=== PATIENT | male | born 1950 | race Two or more races ===

== ENCOUNTER → 2024-03-03 | Outpatient (CLI) | payer OTHER, SELFPAY ==
[2024-03-03 09:29] LABS: Misc Send Out* See Sep Rpt
[2024-03-03 10:41] LABS: Basophils % (Auto) 1 % (0-2.5); Eosinophils # (Auto) 0.3 Thou/mm3 (0.0-0.5); Eosinophils % (Auto) 7 % (0-10); Hematocrit 40.1 % (41.0-53.0); Hemoglobin 13.4 g/dL (13.5-16.0); Immature Granulocytes % (Auto) 0 % (0-0); Immature Granulocytes Auto 0.01 Thou/mm3 (0.00-0.00); Lymphocytes # (Auto) 1.7 Thou/mm3 (1.0-4.8); Lymphocytes % (Auto) 37 % (10-50); Mean Corpuscular HGB Conc 33.4 g/dl (31.0-37.0); Mean Corpuscular Hemoglobin 29.7 pg (25.0-35.0); Mean Corpuscular Volume 89 fL (80-100); Monocytes # (Auto) 0.3 Thou/mm3 (0.0-0.8); Monocytes % (Auto) 7 % (0-12); Neutrophils # (Auto) 2.1 Thou/mm3 (1.8-7.7); Neutrophils % (Auto) 47 % (37-80); Nucleated Red Blood Cell % 0 /100 WBC (0); Platelet Count 281 Thou/mm3 (140-440); RDW Standard Deviation 39.2 fL (35.1-43.9); Red Blood Count 4.51 Miln/mm3 (4.50-5.90); White Blood Count 4.5 Thou/mm3 (3.8-10.6)
[2024-03-03 11:07] LABS: Alanine Aminotransferase 13 U/L (10-49); Albumin, Serum 4.4 gm/dL (3.4-4.8); Albumin/Globulin Ratio 1.7 (1.2-2.2); Alkaline Phosphatase 80 U/L (46-116); Anion Gap 6 (7-16); Aspartate Amino Transferase 14 U/L (0-34); BUN/Creatinine Ratio 15 Ratio (12-20); Bilirubin,Total 0.9 mg/dL (0.3-1.2); Blood Urea Nitrogen 16 mg/dL (9-23); Calcium 9.7 mg/dL (8.3-10.6); Calcium (Corrected) 9.7 mg/dL (8.5-10.1); Carbon Dioxide 29.1 mMol/L (20.0-31.0); Chloride 104 mMol/L (98-107); Creatinine (Component) 1.1 mg/dL (0.6-1.3); Globulin 2.6 gm/dL (2.3-3.5); Glucose 102 mg/dL (74-106); Osmolality,Calculated 278 (275-295); Potassium 4.2 mMol/L (3.4-5.1); Sodium 139 mMol/L (136-145); eGFR > 60 See Note
[2024-03-07 19:47] LABS: Abnormal protein band 1 0.8 g/dL (NONE DETECTED); Albumin 4.1 g/dL (3.8-4.8); Alpha-1-Globulin 0.2 g/dL (0.2-0.3); Alpha-2-Globulin 0.6 g/dL (0.5-0.9); Beta-1-Globulin 0.4 g/dL (0.4-0.6); Beta-2-globulin 0.7 g/dL (0.2-0.5); Gamma Globulin 1.1 g/dL (0.8-1.7); Immunoglobulin A 98 mg/dL (70-320); Immunoglobulin G 724 mg/dL (600-1540); Kappa Light Chain, Free 53.1 mg/L (3.3-19.4); Lambda Light Chain, Free 21.9 mg/L (5.7-26.3)
[2024-03-10 06:53] LABS: Beta 2 Microglobulin 1.95 mg/L (< OR = 2.51); Immunoglobulin M 1488 mg/dL (50-300); Kappa/Lambda, Free Ratio 2.42 (0.26-1.65)
== END | disposition home or self-care (01) ==
LOC: SCTO 08:57
PROVIDERS: PCP Family Medicine; Referring Provider Nurse Practitioner Family; Visit Provider Nurse Practitioner Family
DX: D47.2 Monoclonal gammopathy (principal)
CPT/HCPCS: 36415; 80053; 82232; 82784; 83521; 84155; 84165; 85025; 85810; 86334

== ENCOUNTER 2024-03-13 09:23 | Outpatient (RCR) | payer OTHER, SELFPAY | END 2024-03-25 23:59 | disposition home or self-care (01) | LOC: SCTC 09:23 | PROVIDERS: PCP Family Medicine; Referring Provider Family Medicine; Visit Provider Nurse Practitioner Family | DX: D47.2 Monoclonal gammopathy (principal) | CPT/HCPCS: 99212; G0463 ==

== ENCOUNTER → 2024-03-14 | Outpatient (BNVA) | payer OTHER, SELFPAY | END | disposition home or self-care (01) | PROVIDERS: PCP Nurse Practitioner Family; Referring Provider Nurse Practitioner Family; Visit Provider Nurse Practitioner Family | DX: Z01.810 Encounter for preprocedural cardiovascular examination (principal); Z00.01 Encounter for general adult medical examination with abnormal findings; Z13.820 Encounter for screening for osteoporosis; Z13.1 Encounter for screening for diabetes mellitus; F17.200 Nicotine dependence, unspecified, uncomplicated; Z13.220 Encounter for screening for lipoid disorders; Z11.3 Encounter for screening for infections with a predominantly sexual mode of transmission; N40.0 Benign prostatic hyperplasia without lower urinary tract symptoms; D47.2 Monoclonal gammopathy | CPT/HCPCS: 93005; 99215 ==

== ENCOUNTER → 2024-03-21 | Outpatient (BNVA) | payer OTHER, SELFPAY | END | disposition home or self-care (01) | PROVIDERS: PCP Nurse Practitioner Family; Referring Provider Nurse Practitioner Family; Visit Provider Nurse Practitioner Family | DX: N40.0 Benign prostatic hyperplasia without lower urinary tract symptoms (principal); D47.2 Monoclonal gammopathy; E78.5 Hyperlipidemia, unspecified; Z71.2 Person consulting for explanation of examination or test findings; R73.03 Prediabetes; N39.0 Urinary tract infection, site not specified | CPT/HCPCS: 99213 ==

== ENCOUNTER → 2024-04-03 | Outpatient (BNVA) | payer OTHER, SELFPAY | END | disposition home or self-care (01) | PROVIDERS: PCP Nurse Practitioner Family; Referring Provider Nurse Practitioner Family; Visit Provider Nurse Practitioner Family | DX: Z00.01 Encounter for general adult medical examination with abnormal findings (principal); N40.0 Benign prostatic hyperplasia without lower urinary tract symptoms | CPT/HCPCS: 99212; G0463 ==

== ENCOUNTER 2024-04-25 09:26 | Emergency (ER) | payer OTHER, SELFPAY ==
[2024-04-25 09:36] VITALS: BP 145/82; PULSE 74; RESP 18; TEMP 37.4; O2SAT 95; BMI 21.9
--- NOTE | 2024-04-25 09:41 | XR_ITS ---
Examination: PA lateral chest 2 views TECHNIQUE: Upright PA lateral chest 2 views Exam date and time: April 25, 2024 10:11 AM INDICATIONS: Coughing congestion beginning 2 weeks ago. FINDINGS: Size. Lungs are clear. The osseous structures are intact IMPRESSION: No active disease
--- NOTE | 2024-04-25 09:42 | EDNOTE_ITS ---
Upper Respiratory Inf. RME/HPI General Chief Complaint: Flu Like Symptoms Stated Complaint: Cough X 2 months Time Seen by Provider: 04/25/24 09:42 Source: patient Arrival date/time: 04/25/24 09:26 73-year-old male with a history of hyperlipidemia presents to the emergency room with a chief complaint of coughing x 2 months. Patient states he is a chronic smoker. Mode of arrival: ambulatory Limitations: no limitations Related Data Previous Rx's ?Medication ?Instructions ?Recorded rosuvastatin 20 mg tablet 20 mg PO HS 90 days #90 tabs 03/21/24 Allergies Allergy/AdvReac Type Severity Reaction Status Date / Time No Known Allergies Allergy Verified 04/03/24 11:12 Review of Systems Review of Systems Systems Reviewed: All systems reviewed, normal except as documented Constitutional Constitutional: Reports system reviewed and no additional complaints, except as documented, Denies fatigue, Denies fever(s), Denies headache(s) and Denies weakness Eyes Eyes: Reports system reviewed and no additional complaints, except as documented, Denies blurry vision and Denies change in vision ENT Ears, Nose, Mouth, and Throat: Reports system reviewed and no additional complaints, except as documented, Denies otalgia, Denies headache(s), Denies nasal congestion, Denies throat swelling and Denies vertigo Cardiovascular Cardiovascular: Reports system reviewed and no additional complaints, except as documented, Denies chest pain, Reports dyspnea and Denies dyspnea on exertion Respiratory Respiratory: Reports system reviewed and no additional complaints, except as documented, Reports chest congestion, Reports cough, Reports dyspnea, Denies dyspnea on exertion, Denies hemoptysis and Denies wheezing Gastrointestinal Gastrointestinal: Reports system reviewed and no additional complaints, except as documented, Denies abdominal pain, Denies cramping, Denies nausea and Denies vomiting Genitourinary Genitourinary: Reports system reviewed and no additional complaints, except as documented, Denies dysuria and Denies hematuria Musculoskeletal Musculoskeletal: Reports system reviewed and no additional complaints, except as documented and Denies back pain Integumentary/Breasts Skin/Breast: Reports system reviewed and no additional complaints, except as documented and Denies wounds Neurologic Neurologic: Reports system reviewed and no additional complaints, except as documented, Denies confusion, Denies headache(s), Denies lack of coordination, Denies vertigo and Denies weakness Psychiatric Psychiatric: Reports system reviewed and no additional complaints, except as documented, Denies anxiety, Denies confusion, Denies depression, Denies paranoia, Denies suicidal ideation and Denies tactile hallucinations Endocrine Endocrine: Reports system reviewed and no additional complaints, except as documented and Denies fatigue Hematologic/Lymphatic Hematologic/Lymphatic: Reports system reviewed and no additional complaints, except as documented and Denies lymphadenopathy Allergic/Immunologic Allergic/Immunologic: Reports system reviewed and no additional complaints, except as documented, Denies throat swelling, Denies urticaria and Denies wheezing Past Medical History Past Medical History NEUROLOGIC: Positive Head Trauma ( A CHILD); Negative Neurological Disorders or Seizures CARDIAC: Negative Cardiac Disorders, Congestive Heart Failure, Edema or Cellulitis RESPIRATORY: Negative Chronic Obstructive Pulmonary Disease (COPD), Tuberculosis or Sleep Apnea GASTROINTESTINAL: Negative Gastrointestinal Disorders or Hepatitis GENITOURINARY: Negative Genitourinary Disorders or Renal Disease MUSCULOSKELETAL: Positive Musculoskeletal Disorders (RIGHT SHOULDER PAIN) and Fractures (RIGHT HAND - SEVERAL YEARS AGO. HAD SURGERY) ENT: Positive Cataracts (LEFT EYE FOR THIS PROC), Deafness (HEARING AID VESTA EAR. HARD TO UNDERSTAND WORD AT TIMES) and Head Trauma ( A CHILD) ENDOCRINE: Negative Endocrine Disorders, Diabetes Mellitus Type 1 or Diabetes Mellitus Type 2 HEMATOLOGIC: Positive Blood Disorders (IgM Monoclonal Gammopathy) OTHER HISTORY: Negative Hospitalization, Autoimmune Disease, Shingles, Falls, Blood Transfusions, Blood Transfusion Reaction, Anesthesia Reactions, Organ Transplant, Chemotherapy, Radiation Therapy, Hyperbaric Therapy, MRSA, Chicken Pox, Measles, Mumps or Cancer Family History FAMILY HISTORY: Positive Family Respiratory Disorders (FATHER (ASTHMA)) and Family Surgery (BROTHER); Negative Family Psychiatric Problems, Family Cardiac Disorders, Family Gastro intestinal Problems, Family Cancer or Family Anesthesia Reaction Surgical History SURGICAL: Positive Open Reduction Internal Fixation (RIGHT HAND hardware implant and removal); Negative Cardiac Surgery, Pacemaker, Ear Surgery, Eye Surgery, Nose Surgery, Oral Surgery, Tonsillectomy, Abdominal Surgery, Neurologic Surgery, Vasectomy or Organ Transplant Social History SMOKING STATUS: Current some day smoker SECOND HAND EXPOSURE: No ED Exam General Limitations: Present no limitations General appearance: Present alert and in no apparent distress Head Head exam: Present atraumatic Eye Eye exam: Present normal appearance, PERRL and EOMI ENT ENT exam: Present normal exam, normal oropharynx and mucous membranes moist Neck Neck exam: Present normal inspection, full ROM and trachea midline Chest Chest inspection: Present normal inspection and symmetric chest wall rise Respiratory Respiratory exam: Present normal lung sounds bilaterally; Absent respiratory distress, wheezes, stridor, accessory muscle use or prolonged expiratory phase Cardiovascular Cardiovascular exam: Present regular rate, normal rhythm and normal heart sounds Abdominal Exam Abdominal exam: Present soft and normal bowel sounds Extremities Exam Extremities exam: Present normal inspection and full ROM Back Exam Back exam: Present normal inspection and full ROM Neurological Exam Neurological exam: Present alert, oriented X3 and CN II-XII intact Psychiatric Psychiatric exam: Present normal affect and normal mood Skin Skin exam: Present warm, dry, intact and normal color Course Quality Measures none Orders Category Date Time Status Bedside COVID-19 Antigen Test NOW Care 04/25/24 09:41 Active Bedside Influenza A&B Antigen Test NOW Care 04/25/24 09:41 Completed XR chest 2V Stat Exams 04/25/24 09:41 Completed Dexamethasone Inj [Decadron Inj] Med 04/25/24 09:41 Discontinued 10 mg PO X1 ONE Vital Signs Vital signs: Vital Signs Temperature 99.4 F 04/25/24 09:36 Pulse Rate 74 04/25/24 09:36 Respiratory Rate 18 04/25/24 09:36 Blood Pressure 145/82 H 04/25/24 09:36 Pulse Oximetry (%) 95 04/25/24 09:36 Oxygen Delivery Method Room Air 04/25/24 09:36 O2 saturation 95% within normal limits with Upper Respiratory Infection MDM Narrative MDM Narrative:: 73-year-old male with a history of hyperlipidemia presents to the emergency room with a chief complaint of coughing x 2 months. Patient states he is a chronic smoker. Clinically the patient appears nontoxic and in no apparent distress. Physical examination shows clear bilateral lung sounds with no wheezing or stridor or any abnormal breath sounds. Patient states he is a chronic smoker and has been smoking the majority of his life. Smoking cessation education was given to the patient. X-ray was completed and was negative for any pneumonic infiltrates. COVID-19 and influenza were both negative. Patient was educated to follow-up with primary care provider and return to the emergency room for any evidence of worsening signs or symptoms Patient data External records reviewed:: [facility] previous records Clinical information provided by:: patient Social determinants that could affect healthcare access:: none Patient has the following chronic illnesses:: Hyperlipidemia How is presenting disease/condition affected by chronic disease/condition?: uneffected by Evaluation data The following diagnostics were reviewed and interpreted by me:: lab results and radiology exam(s) Lab and/or radiology exams considered but not ordered:: Labs and radiology exams considered and ordered Interpretation Summary: Chest [id number]: Size. Lungs are clear. The osseous structures are intact IMPRESSION: No active disease Medications / Prescriptions Medications or Prescriptions considered but not ordered:: Medication given Medication administrations:: Medication Administration History Discontinued Medications Dexamethasone Sodium Phosphate (Dexamethasone Sod Phos Inj 10 Mg/Ml Vial) 10 mg PO X1 ONE Stop: 04/25/24 09:42 Last Admin: 04/25/24 09:51 Dose: 10 mg Documented By: BD Comments: GIVEN PO Medication given Consultations Consultation(s) initiated? (list below): No Diagnosis Upper Respiratory Differential Diagnosis: upper respiratory infection, viral infection, bronchitis, influenza and other (COPD/community-acquired pneumonia) Most likely diagnosis given after review of the tests above:: Bronchitis Admission Indicated Admission indicated?: not indicated Admission Request Was there a request for admission?: No Disposition Plan Disposition Plan: Discharge Discharge Attestation Discharge Attestation: The patient and all family members were given an opportunity to ask questions and understood the discharge instructions. Discharge instructions specifically effects, indications for sooner follow up or return to the emergency department, and the expected course of current diagnosis. Patient condition: Stable Discharge Plan Plan Patient Disposition: HOME (Self Care) Disposition Comment: Stable Prescriptions/Referrals Prescriptions/Med Rec: No Action rosuvastatin 20 mg tablet 20 mg PO HS 90 Days Qty: 90 0RF Referrals: Jose A MICHAEL,MORIS MariP [Primary Care Provider] - In 1 week Problem List Clinical Impression: Chronic cough Patient/Caregiver Discharge Instructions Education Materials: ED Cough Chronic Uncertain Cause Adult Additional Instructions: Jax un seguimiento con barker proveedor de atenci?n primaria en las pr?ximas 24 a 40 horas. Se complet? randy radiograf?a de t?rax que fue negativa para infiltrados neum?nicos o hallazgos agudos. La odalys m?s probable de esta tos cr?maegan es fumar. Si hay evidencia de signos o s?ntomas que empeoran, regrese a la ericka de emergencias de inmediato. Print Language: Samoan Stand Alone Forms: Gabriela Award Info., Patient Portal Info Letter PA/[employer] Supervising Physician PA/[employer] Supervising Physician: Dr. Mark
[2024-04-25] MEDS: DEXAMETHASONE SOD PHOS INJ 10 MG/ML VIAL PO (09:51)
== END 2024-04-25 13:56 | disposition home or self-care (01) ==
PROVIDERS: Emergency Provider Emergency Medicine; PCP Nurse Practitioner Family
DX: R05.3 Chronic cough (principal); E78.5 Hyperlipidemia, unspecified
CPT/HCPCS: 71046; 87400; 87811; 99283; J1100

== ENCOUNTER → 2024-04-29 | Outpatient (BNVA) | payer OTHER, SELFPAY | END | disposition home or self-care (01) | PROVIDERS: PCP Nurse Practitioner Family; Referring Provider Nurse Practitioner Family; Visit Provider Nurse Practitioner Family | DX: J20.9 Acute bronchitis, unspecified (principal); J44.9 Chronic obstructive pulmonary disease, unspecified; Z87.891 Personal history of nicotine dependence; N39.0 Urinary tract infection, site not specified | CPT/HCPCS: 81001; 94640; 96372; 99215; A4216; J0696; A9270 ==

== ENCOUNTER → 2024-05-20 | Outpatient (BNVA) | payer OTHER, SELFPAY | END | disposition home or self-care (01) | PROVIDERS: PCP Nurse Practitioner Family; Referring Provider Nurse Practitioner Family; Visit Provider Nurse Practitioner Family | DX: J44.9 Chronic obstructive pulmonary disease, unspecified (principal); Z13.820 Encounter for screening for osteoporosis | CPT/HCPCS: 99214 ==

== ENCOUNTER → 2024-05-30 | Outpatient (CLI) | payer OTHER, SELFPAY ==
[2024-05-30 11:27] LABS: Basophils % (Auto) 1 % (0-2.5); Eosinophils # (Auto) 0.4 Thou/mm3 (0.0-0.5); Eosinophils % (Auto) 6 % (0-10); Hemoglobin 12.1 g/dL (13.5-16.0); Immature Granulocytes % (Auto) 0 % (0-0); Immature Granulocytes Auto 0.01 Thou/mm3 (0.00-0.00); Lymphocytes # (Auto) 1.5 Thou/mm3 (1.0-4.8); Lymphocytes % (Auto) 21 % (10-50); Mean Corpuscular HGB Conc 32.7 g/dl (31.0-37.0); Mean Corpuscular Hemoglobin 29.4 pg (25.0-35.0); Mean Corpuscular Volume 90 fL (80-100); Monocytes # (Auto) 0.4 Thou/mm3 (0.0-0.8); Monocytes % (Auto) 6 % (0-12); Neutrophils # (Auto) 4.6 Thou/mm3 (1.8-7.7); Neutrophils % (Auto) 66 % (37-80); Nucleated Red Blood Cell % 0 /100 WBC (0); Platelet Count 210 Thou/mm3 (140-440); RDW Standard Deviation 41.6 fL (35.1-43.9); Red Blood Count 4.12 Miln/mm3 (4.50-5.90); White Blood Count 6.9 Thou/mm3 (3.8-10.6)
[2024-05-30 11:40] LABS: Alanine Aminotransferase 24 U/L (10-49); Albumin/Globulin Ratio 1.2 (1.2-2.2); Alkaline Phosphatase 84 U/L (46-116); Anion Gap 5 (7-16); Aspartate Amino Transferase 12 U/L (0-34); BUN/Creatinine Ratio 12 Ratio (12-20); Bilirubin,Total 0.6 mg/dL (0.3-1.2); Blood Urea Nitrogen 11 mg/dL (9-23); Calcium 9.1 mg/dL (8.3-10.6); Calcium (Corrected) 9.1 mg/dL (8.5-10.1); Carbon Dioxide 29.4 mMol/L (20.0-31.0); Chloride 106 mMol/L (98-107); Creatinine (Component) 0.9 mg/dL (0.6-1.3); Globulin 3.3 gm/dL (2.3-3.5); Glucose 100 mg/dL (74-106); Osmolality,Calculated 278 (275-295); Potassium 4.2 mMol/L (3.4-5.1); Sodium 140 mMol/L (136-145); Total Protein 7.3 gm/dL (5.7-8.2); eGFR > 60 See Note
[2024-06-09 08:50] LABS: Abnormal protein band 1 1.1 g/dL (NONE DETECTED); Albumin 3.9 g/dL (3.8-4.8); Alpha-1-Globulin 0.2 g/dL (0.2-0.3); Alpha-2-Globulin 0.7 g/dL (0.5-0.9); Beta-1-Globulin 0.4 g/dL (0.4-0.6); Beta-2-globulin 0.9 g/dL (0.2-0.5); Gamma Globulin 1.1 g/dL (0.8-1.7); Immunoglobulin A 104 mg/dL (70-320); Immunoglobulin G 700 mg/dL (600-1540); Lambda Light Chain, Free 20.4 mg/L (5.7-26.3)
[2024-06-10 06:41] LABS: Beta 2 Microglobulin 1.93 mg/L (< OR = 2.51); Immunoglobulin M 2065 mg/dL (50-300); Kappa/Lambda, Free Ratio 2.84 (0.26-1.65); Protein, total, serum 7.3 g/dL (6.1-8.1)
== END | disposition home or self-care (01) ==
LOC: SCTO 10:38
PROVIDERS: PCP Nurse Practitioner Family; Referring Provider Nurse Practitioner Family; Visit Provider Nurse Practitioner Family
DX: D47.2 Monoclonal gammopathy (principal)
CPT/HCPCS: 36415; 80053; 82232; 82784; 83521; 84155; 84165; 85025; 86334

== ENCOUNTER 2024-06-11 10:50 | Outpatient (RCR) | payer OTHER, SELFPAY ==
--- NOTE | 2024-06-30 00:18 | CTCFLWUP_ITS ---
Patient: DIONISIO AVILA : 1950 Page 2 of 4 FOLLOW UP NOTE DATE OF SERVICE: 06/11/2024 NAME: DIONISIO AVILA ACCOUNT: [id number] : 1950 AGE: 73 INTERVAL HISTORY: Patient in for follow-up visit. Patient is doing clinically well. Patient denies any concerns or complaints. Patient continues to work in agriculture. Myeloma labs were done on 03/03/2024. 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 He had bone marrow biopsy and aspiration done on 04/28/2016 that showed 5-10% kappa restricted plasma cells. His last labs were drawn on 10/02/2017. IgM is 736. It has decreased from 985 on 04/04/2017. Patient continues to remain asymptomatic at this time. He denies any cough chest pain shortness of breath abdominal pain or leg cramps. 05/15/2018: Patient is in the clinic today for follow-up. He is clinically doing very well. Denies any new complaints. Denies any cough chest pain shortness of breath abdominal pain or leg cramps. He denies any new developments since the last visit. He had labs drawn on 05/08/2018. His WBC count is 4.2, hemoglobin is 14.4 and platelets are 225,000. Creatinine is 1.0. His IgM is 734. Stable. 03/16/2021: IgM 1075, IgG 767, IgA 115, kappa light chains 52.5, hemoglobin 13.5, MCV 91, WBC 5.1, ANC 2.6, platelets 274,000. 03/08/2023: IgM 1401, IgG 736, IgA 105, hemoglobin 13.9, MCV 91, WBC 5.0, ANC 2.8, platelets 272,000, eGFR 60, creatitine 1.0, calcium 9.5 05/01/2023: Ig M 1402, PfD696 , IgA 101, no CBC 08/31/2023: IgM 1256, IgG 742, IgA 111, abnormal protein band 0.8, hemoglobin 12.8, MCV 89, WBC 4.8, ANC 2.2, platelets 329,000, eGFR> 60, creatitine 1.1, calcium 9.7 OTHER MEDICAL HISTORY/CONDITIONS: FAMILY HISTORY: SOCIAL HISTORY: MEDICATIONS: 1. Breztri Aerosphere - 160-9-4.8 mcg/actuation 2 Puff(s) Twice a Day 2. rosuvastatin - 20 mg 1 tab Every day before sleep Medications Last Reconciled by Darcie Buchanan MA on 06/11/2024 ALLERGIES: No Known Drug Allergies REVIEW OF SYSTEMS: A complete 14-point review of systems was performed and is negative except as noted in interval history. PHYSICAL EXAMINATION: VITAL SIGNS: Temperature?98.3, B/P?113/70, Oxygen?Saturation?98% Weight?127.6?lbs PAIN: 0 - No pain ECOG Performance Status: 0 - Asymptomatic and fully active GENERAL APPEARANCE: Appears well, in no apparent distress, appropriately interactive. HEENT: Normocephalic, no temporal wasting, normal conjunctiva, no scleral icterus, normal hearing, lips without lesions, neck normal range of motion. CARDIOVASCULAR: Not assessed. PULMONARY: Normal respiratory effort, no respiratory distress or use of accessory muscles, speaking in full sentences, no tachypnea. EXTREMITIES: No cyanosis. SKIN: Normal skin appearance. NEUROLOGIC: Alert and oriented x4. PSHYCHIATRIC: Appropriate affect, mood normal, behavior normal, intact thought and speech. LABORATORY DATA: I have personally reviewed and interpreted each of the patient?s relevant lab tests, abnormal findings are below: Date 03/03/24 05/30/24 ??WHITE?BLOOD?COUNT?(Thou/mm3) 4.5 6.9 ??RED?BLOOD?COUNT?(Miln/mm3) 4.51 4.12?L ??HEMOGLOBIN?(gm/dl) 13.4?L 12.1?L ??HEMATOCRIT?(%) 40.1?L 37.0?L ??PLATELET?COUNT?(Thou/mm3) 281 210 ??NEUTROPHILS?%,?AUTO?(%) 47 66 ??LYMPH?%,?AUTO?(%) 37 21 ??NEUTROPHILS,?AUTO?(Thou/mm3) 2.1 4.6 ??GLUCOSE,RANDOM?(mg/dL) 102 100 ??BLOOD?UREA?NITROGEN?(mg/dL) 16 11 ??CREATININE?(mg/dL) 1.10 0.90 ??SODIUM?(mmol/L) 139 140 ??POTASSIUM?(mmol/L) 4.2 4.2 ??CHLORIDE?(mmol/L) 104 106 ??CrCl?(CandG)?(ml/min) 47.63 57.75 ??AST/SGOT?(Unit/L) 14 12 ??ALT/SGPT?(Unit/L) 13 24 ??ALKALINE?PHOSPHATASE?(Unit/L) 80 84 ??BILIRUBIN,?TOTAL?(mg/dL) 0.9 0.6 ??PROTEIN?TOTAL?(gm/dl) 7.0 7.3 ??ALBUMIN,?SERUM?(gm/dl) 4.4 4.0 ??GLOBULIN?(gm/dl) 2.6 3.3 ??ALBUMIN/GLOBULIN?RATIO 1.7 1.2 ??CALCIUM,?SERUM?(mg/dL) 9.7 9.1 ??CALCIUM?SERUM?(CORRECTED)?(mg/dL) 9.7 9.1 ASSESSMENT/PLAN: 1. 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 Patient continues to remain asymptomatic. Patient denies bone pain, fatigue, weight loss. IgM more than 2000 ,,check for progression to myeloma Patient do not have any symptoms for hyperviscosity including sudden blindness or headache Will check labs Consult to come to the emergency room if patient has any such symptoms 2. Colonoscopy screening done in October 2024, patient was told to repeat in 5 years.. CBC CMP myeloma panel labs ORDERS: Order # Description [id number] Initial PET/CT of Skull to Mid-Thigh [id number] Ferritin + Vitamin B-12 + Iron Panel + Folic Acid; Serum [id number] Serum Viscocity [id number] Plasma cell myeloma prognostic FISH panel [id number] Follow Up 4 Week RETURN TO CLINIC: 4 weeks BILLING AND COMPLIANCE: I reviewed external records from providers outside my specialty as summarized above. I spent a total of 50 minutes on this patient?s care on the day of their visit excluding time spent related to any billed procedures. This time includes time spent with the patient as well as time spent documenting in the medical record, reviewing patients records and tests, obtaining history, placing orders, communicating with other healthcare professionals, counseling the patient, family or caregiver, and/or care coordination for the diagnoses above. Electronically Signed by: Gurwinder Reinoso MD T: 12:15 AM CC: Ambika?Yogi,? PCP: Jose A [facility] Ana Dalton Referring: Jose A [facility] Ana Dalton This document was completed utilizing speech recognition software. Grammatical errors, random word insertions, pronoun errors, and incomplete sentences are an occasional consequence of this system due to software limitations, ambient noise, and hardware issues. Any formal questions or concerns about the content, text or information contained within the body of this dictation should be directly addressed to the provider for clarification.
== END 2024-06-23 23:59 | disposition home or self-care (01) ==
LOC: SCTC 10:50
PROVIDERS: PCP Nurse Practitioner Family; Referring Provider Nurse Practitioner Family; Visit Provider Internal Medicine Hematology & Oncology
DX: D47.2 Monoclonal gammopathy (principal)
CPT/HCPCS: 99213; G0463

== ENCOUNTER → 2024-06-17 | Outpatient (CLI) | payer OTHER, SELFPAY ==
--- NOTE | 2024-06-17 14:00 | XR_ITS ---
Examination: Bone densitometry Date and time of exam:June 17, 2024 1413 hours INDICATIONS: 73-year-old male with diagnosis age related osteoporosis, history wrist fracture, personal history osteopenia Technique: Lumbar spine and hip total bone mineralization values of an calculated. Peak reference and age match control results have been displayed. Findings: Lumbar spine total bone mineralization is1.010 gm/cm2. This is 0.7 standard deviations below peak reference. This is 0.3 standard deviations above age-matched controls. Hip total bone mineralization is 0.915 gm/cm2 This is 1.1 standard deviations below peak reference. This is 0.3 standard deviations below age-matched controls Impression: There is normal mineralization based on lumbar spine measurements. There is osteopenia based on hip measurements Lumbar mineralization is increase 7.7% compared with October 20, 2015 Hip mineralization is increased 1.4% compared with October 20, 2015
== END | disposition home or self-care (01) ==
PROVIDERS: PCP Nurse Practitioner Family; Referring Provider Nurse Practitioner Family; Visit Provider Nurse Practitioner Family
DX: Z13.820 Encounter for screening for osteoporosis (principal); M85.89 Other specified disorders of bone density and structure, multiple sites
CPT/HCPCS: 77080

== ENCOUNTER → 2024-06-30 | Outpatient (BNVA) | payer OTHER, SELFPAY | END | disposition home or self-care (01) | PROVIDERS: PCP Nurse Practitioner Family; Referring Provider Nurse Practitioner Family; Visit Provider Nurse Practitioner Family | DX: Z71.2 Person consulting for explanation of examination or test findings (principal); R00.1 Bradycardia, unspecified; J44.9 Chronic obstructive pulmonary disease, unspecified; R73.03 Prediabetes; E78.5 Hyperlipidemia, unspecified; M85.88 Other specified disorders of bone density and structure, other site | CPT/HCPCS: 99214 ==

== ENCOUNTER 2024-07-30 07:43 | Outpatient (CLI) | payer OTHER, SELFPAY ==
[2024-07-29 09:23] LABS: Basophils # (Auto) 0.1 Thou/mm3 (0.0-0.2); Basophils % (Auto) 1 % (0-2.5); Eosinophils # (Auto) 0.3 Thou/mm3 (0.0-0.5); Eosinophils % (Auto) 7 % (0-10); Hematocrit 39.4 % (41.0-53.0); Hemoglobin 13.5 g/dL (13.5-16.0); Immature Granulocytes % (Auto) 0 % (0-0); Immature Granulocytes Auto 0.01 Thou/mm3 (0.00-0.00); Lymphocytes # (Auto) 1.9 Thou/mm3 (1.0-4.8); Lymphocytes % (Auto) 39 % (10-50); Mean Corpuscular HGB Conc 34.3 g/dl (31.0-37.0); Mean Corpuscular Hemoglobin 30.1 pg (25.0-35.0); Mean Corpuscular Volume 88 fL (80-100); Monocytes # (Auto) 0.4 Thou/mm3 (0.0-0.8); Monocytes % (Auto) 9 % (0-12); Neutrophils # (Auto) 2.1 Thou/mm3 (1.8-7.7); Neutrophils % (Auto) 44 % (37-80); Nucleated Red Blood Cell % 0 /100 WBC (0); Platelet Count 253 Thou/mm3 (140-440); RDW Standard Deviation 40.2 fL (35.1-43.9); Red Blood Count 4.48 Miln/mm3 (4.50-5.90); White Blood Count 4.8 Thou/mm3 (3.8-10.6)
[2024-07-29 09:28] LABS: Blood Urea Nitrogen 17 mg/dL (9-23); Creatinine (Component) 1.2 mg/dL (0.6-1.3); INR 0.9 (0.9-1.3); Partial Thromboplastin Time 25.3 Seconds (22.0-36.0); Prothrombin Time 10.3 Seconds (9.0-12.2); eGFR > 60 See Note
[2024-07-30] VITALS (10 sets, daily range): BP systolic 120–147; BP diastolic 69–83; PULSE 45–55; RESP 12–16; TEMP 36.2–36.5; O2SAT 94–100; BMI 25.4
--- NOTE | 2024-07-30 08:30 | XR_ITS ---
Examination: CT-guided percutaneous bone marrow aspiration right posterior superior iliac crest CT-guided percutaneous bone biopsy deep right posterior superior iliac crest CT pelvis without intravenous contrast Date and time of procedure: July 30, 2024 0912 hours INDICATIONS: Diagnosis monoclonal gammopathy Informed consent provided. A timeout was completed verifying correct patient, procedure, site and positioning. . Technique: Axial 3 mm sections were obtained for localization of the right posterior superior iliac crest Appropriate area is marked. The patient's site was prepped and draped in sterile fashion Maximal sterile barrier technique utilized, including hand hygiene Local anesthesia was obtained with 1% lidocaine. Low dose protocols were performed. One or more of the following dose reduction techniques were used; automated exposure control, adjustment of the mA and/or KV according to patient size, use of iterative reconstruction technique. Utilizing CT fluoroscopic guidance 14-gauge bone biopsy needle placed in the right posterior superior iliac crest 5 cc marrow aspirate and 5 cm bone core obtained Patient appears in stable condition during this procedure. At completion of the procedure, the patient is in satisfactory condition. Estimated blood loss 2 cc Complete pathology report to follow. Impression: Successful CT-guided percutaneous bone marrow aspiration right posterior superior iliac crest Successful CT-guided percutaneous bone biopsy deep right posterior superior iliac crest
[2024-07-30 09:35] LABS: Flow Cytometry* See Sep Rpt
[2024-07-30] MEDS: SODIUM CHLORIDE 0.9% 500 ML 500 ML 20 ML IV (09:36)
[2024-07-30] MEDS: fentaNYL CIT INJ 50 mCg/ML AMP 2ML 75 MCG IVP (09:37)
--- NOTE | 2024-07-30 11:33 | PC.NURSE ---
0958 patient is awake, alert, breathing unlabored, s/p bone marrow biopsy and aspiration, dressing to lower back dry with no active bleeding, report received from Carmenza MIRELES, patient to recover for 1 hour. 1120 patient is awake, alert, breathing unlabored, dressing dry with no bleeding, patient able to tolerate apple juice with no nausea or vomiting, able to ambulate to bathroom and void, meets discharge criteria, discharge instructions given to patient and , patient discharged home in wheelchair with all belongings.
== END 2024-07-30 11:20 | disposition home or self-care (01) ==
PROVIDERS: Radiology Diagnostic Radiology; PCP Nurse Practitioner Family; Referring Provider Internal Medicine Hematology & Oncology; Visit Provider Internal Medicine Hematology & Oncology
DX: C90.30 Solitary plasmacytoma not having achieved remission (principal); Z01.812 Encounter for preprocedural laboratory examination
CPT/HCPCS: 38221; 36415; 77012; 82565; 84520; 85025; 85610; 85730; J3010; J7040

== ENCOUNTER → 2024-08-05 | Outpatient (CLI) | payer OTHER, SELFPAY ==
--- NOTE | 2024-08-05 08:45 | XR_ITS ---
EXAMINATION: PET/CT FUSION SKULL TO THIGH EXAM DATE AND TIME: August 05, 2024 0940 hours INDICATIONS: Diagnosis monoclonal gammopathy, staging CTDI:vol (mGy) 2.64 DLP: (mGycm) 241 PROCEDURE: 15.8 mCi FDG was administered intravenously To allow for distribution and uptake of radiotracer, the patient was allowed to rest quietly in a shielded room. Imaging was performed on an integrated 16-slice PET/CT scanner, with scanning from the skull base to the mid thigh. Serum blood glucose at the time of the injection was measured 98 mg/dL. CT scanning was performed without oral or intravenous contrast material. FINDINGS: Head and Neck: There is no chong hypermetabolism in the neck. The visualized portions of the brain are normal in appearance on CT. Chest: 17 x 27 mm soft tissue pleural-based mass anterior right upper lobe axial image 86 without obvious rib destruction Posterior pleural-based right lower hemithorax mass 6.1 x 2.1 cm no adjacent rib destruction Abdomen and Pelvis: 13 mm osteolytic lesion left ischium axial image 23, non hypermetabolic Musculoskeletal: Marrow uptake is within normal range. IMPRESSION: Pleural-based pulmonary masses anterior right upper lobe and posterior right lower hemithorax as above, differential would include soft tissue myelomatous tumor masses, either of these is amenable to CT-guided biopsy for diagnosis 13 mm osteolytic lesion left ischium, differential would include multiple myeloma lesion
== END | disposition home or self-care (01) ==
LOC: CDIM 08:20
PROVIDERS: PCP Nurse Practitioner Family; Referring Provider Internal Medicine Hematology & Oncology; Visit Provider Internal Medicine Hematology & Oncology
DX: R91.8 Other nonspecific abnormal finding of lung field (principal); M89.58 Osteolysis, other site
CPT/HCPCS: 78815; A9552

== ENCOUNTER → 2024-12-18 | Outpatient (CLI) | payer OTHER, SELFPAY ==
[2024-12-18 11:26] VITALS: PULSE 55
[2024-12-18] MEDS: ALBUTEROL RT 2.5 MG/3 ML NEBU INH (11:26)
== END | disposition home or self-care (01) ==
PROVIDERS: PCP Nurse Practitioner Family; Referring Provider Specialist; Visit Provider Specialist
DX: F17.210 Nicotine dependence, cigarettes, uncomplicated (principal)
CPT/HCPCS: 94060; 94640; 94644; 94726; 94729